=== PATIENT | male | born 1970 ===

== ENCOUNTER → 2022-03-19 | Day surgery (SDC) | payer OTHER ==
[~2022-03-19] VITALS: Ht 190.5 cm; Wt 127.0 kg
[~2022-03-19] MED LIST: BLOOD PRESSURE
[2022-03-19 08:00] VITALS: BP 133/85
[2022-03-19 09:07] VITALS: BP 127/72
[2022-03-19 09:18] VITALS: BP 118/77
[2022-03-19 09:37] VITALS: BP 150/63
== END | disposition home or self-care (01) ==
LOC: SDC 03-15 12:30
PROVIDERS: ATTEND Surgery
DX: D23.4 Other benign neoplasm of skin of scalp and neck (principal); I10 Essential (primary) hypertension; L92.8 Other granulomatous disorders of the skin and subcutaneous tissue; Z88.0 Allergy status to penicillin; Z79.899 Other long term (current) drug therapy